=== PATIENT | female | born 1945 | race Caucasian/White ===

== ENCOUNTER 2019-03-18 01:02 | Inpatient (IN) | payer MEDICARE, BC ==
[2019-03-18] VITALS (9 sets, daily range): BP systolic 121–143; BP diastolic 67–93
[~2019-03-18] VITALS: Ht 177.8 cm; Wt 126.4 kg
[~2019-03-18 01:02] MED LIST: CELE-1 PO; CEPH500T7 PO; ESOM40CA42 PO; FESO8PT PO; FLUT16SP19 NS; HYDR-2966 PO; LEVO50TA80 PO; LISI-374 PO; MIRA50TA PO; MONT10TA PO; PITA4TAB PO; PREG150C33 PO; TRAM-420 PO
[2019-03-18] MEDS ORDERED: FAMOTIDINE 20 MG TAB PO ONE (06:00)
[2019-03-18] MEDS ORDERED: ACETAMINOPHEN 500 MG TAB PO ONE (06:00)
[2019-03-18] MEDS ORDERED: NORMOSOL R SOLN(*) 1000 ML BAG 1,000 ML IV PRN (06:00)
[2019-03-18] MEDS ORDERED: BACITRACIN 50000 UNIT/VIAL 50,000 UNIT in NS 0.9% IRRIG(*) 1000ML PLCT 1,000 ML IR PRN (06:00)
[2019-03-18] MEDS ORDERED: ceFAZolin(*) 1 GM VIAL 3 GM in NS(*) 0.9% 100 ML BAG 100 ML IVPB ONE (06:00)
[2019-03-18] MEDS ORDERED: MIDAZOLAM 2 MG/2 ML VIAL IVP PRN (06:00)
[2019-03-18] MEDS ORDERED: LIDOCAINE/SOD BICARB 8.4% SYR ID ONE (06:00)
[2019-03-18] MEDS ORDERED: THROMBIN (BOVINE) 20,000 UNIT VIAL ONE (08:23)
[2019-03-18] MEDS ORDERED: REMIFENTANIL HCL 1 MG VIAL ONE (11:12)
[2019-03-18] MEDS ORDERED: NS 0.9% IRRIGATION 1000ML PLCT IR ONE (12:24)
[2019-03-18] MEDS ORDERED: TRANEXAMIC AC 1000 MG/10ML SDV 1,000 MG in DEXTROSE 5% 50 ML BAG 50 ML IV ONE (12:30)
[2019-03-18] MEDS ORDERED: DEXAMETHASONE SOD PHOS 10MG/ML ONE (13:24)
[2019-03-18] MEDS ORDERED: SUCCINYLCHOL CHL 100MG/5ML SYR IVP ONE (13:24)
[2019-03-18] MEDS ORDERED: ONDANSETRON 4 MG/2 ML VIAL ONE (13:24)
[2019-03-18] MEDS ORDERED: PROPOFOL EMUL(*) 10MG/ML 20 ML 20 ML ONE (13:24)
[2019-03-18] MEDS ORDERED: ROCURONIUM BR 10 MG/ML 5 ML SY 5 ML ONE (13:24)
[2019-03-18] MEDS ORDERED: HYDROmorphone HCL 2 MG/ML SDV ONE (14:31)
--- NOTE | 2019-03-18 15:22 | RADIOLOGY IMAGING REPORT ---
FACILITY: [facility] PATIENT NAME: Marianela Mckeon : 1945 MR: [id number] V: [id number] EXAM DATE: ORDERING PHYSICIAN: KAELYN JAQUEZ TECHNOLOGIST: Location: [facility] Patient: Marianela Mckeon : 1945 Visit/Account:[id number] Date of Sevice: 03/18/2019 Intraoperative fluoroscopy. BODY PART: Lumbar spine. NUMBER OF IMAGES: Five. HISTORY: Lumbar surgery. Images were obtained during intraoperative fluoroscopy. FLUOROSCOPY TIME: 35.8 seconds. IMPRESSION: Intraoperative fluoroscopy. Report Dictated By: Kristian Lenz MD at 03/18/2019 3:12 PM Report E-Signed By: Kristian Lenz MD at 03/18/2019 3:13 PM WSN:[email or web address]
[2019-03-18] MEDS ORDERED: LR(*) 1000 ML BAG 1,000 ML IV PRN (16:15)
[2019-03-18] MEDS ORDERED: BENZOCAINE/MENTHOL 1 EACH LOZG PO PRN (16:15)
[2019-03-18] MEDS ORDERED: FLUSH 10 ML SYR IVP PRN (16:15)
[2019-03-18] MEDS ORDERED: BISACODYL 10 MG SUPP PR PRN (16:15)
[2019-03-18] MEDS ORDERED: ACETAMINOPHEN 500 MG TAB PO PRN (16:15)
[2019-03-18] MEDS ORDERED: ACETAMINOPHEN(*)1000 MG/100 ML 100 ML IVPB PRN (16:15)
[2019-03-18] MEDS ORDERED: HYDROmorphone HCL 2 MG/ML SDV IVP PRN (16:15)
[2019-03-18] MEDS ORDERED: MAGNESIUM HYDROXIDE* 30ML UDCP PO PRN (16:15)
[2019-03-18] MEDS ORDERED: oxyCODONE HCL 5 MG CAP PO PRN (16:15)
[2019-03-18] MEDS ORDERED: ONDANSETRON 4 MG/2 ML VIAL IVP PRN (16:15)
[2019-03-18] MEDS ORDERED: diphenhydrAMINE 25 MG CAP PO PRN (16:15)
[2019-03-18] MEDS ORDERED: fentaNYL CITR 100 MCG/2 ML AMP ONE (16:34)
--- NOTE | 2019-03-18 17:16 | Hospitalist Consultation ---
History of Present Illness Requesting Physician Dr. Henriquez Reason for Consult Medical Management of Comorbidities Chief Complaint s/p lumbar fusion History of Present Illness She was admitted s/p lumbar fusion. It is reported the surgery went well and without complication. History Problems: (1) Hyperlipidemia Status: Chronic (2) Hypertension Status: Chronic (3) Hypothyroidism Status: Chronic (4) YEISON (obstructive sleep apnea) Status: Chronic (5) Overactive bladder Status: Chronic (6) UTI (urinary tract infection) Status: Acute Home Meds Reported Medications Cephalexin 500 Mg Tab (KEFLEX 500 MG TAB) 500 Mg Tablet, 500 MG PO DAILY, #28 TAB TAKE FOR 3 DAYS PRIOR TO SURGERY SCHEDULED FOR 03/18/19 03/12/19 Tramadol Hcl (TRAMADOL HCL) 50 Mg Tablet, 50-100 MG PO Q4-6H PRN for PAIN, TAB 03/12/19 Pitavastatin Calcium (LIVALO) 4 Mg Tablet, 4 MG PO QAM 03/12/19 Mirabegron (MYRBETRIQ) 50 Mg Tab.er.24h, 50 MG PO QHS 03/12/19 Hydrochlorothiazide (HYDROCHLOROTHIAZIDE) 25 Mg Tablet, 1 TAB PO QDAY, TAB 03/12/19 Fluticasone Prop 50 Mcg Ns (FLONASE 50 MCG NS) 16 Gm [place].susp, 2 SPRAYS NS QDA Y, BOT 03/12/19 Lisinopril (LISINOPRIL) 40 Mg Tablet, 40 MG PO QDAY, TAB 03/12/19 Levothyroxine Sodium (SYNTHROID) 50 Mcg Tablet, 50 MCG PO QDAY, TAB 03/12/19 Fesoterodine Fumarate (TOVIAZ) 8 Mg Tabsr, 8 MG PO QAM 03/12/19 Pregabalin (LYRICA) 150 Mg Capsule, 150 MG PO BID, CAPSULE 03/12/19 Esomeprazole Magnesium (NEXIUM) 40 Mg Capsule.dr, 1 CAP PO QHS, CAP 03/12/19 Montelukast Sodium (SINGULAIR) 10 Mg Tablet, 1 TAB PO QHS, TAB 03/12/19 Celecoxib (CELEBREX) 200 Mg Capsule, 200 MG PO BID, CAPSULE 03/12/19 Allergies: Coded Allergies: codeine (Verified Allergy, Intermediate, HALLUCINATION, 03/10/19) meperidine (Verified Allergy, Intermediate, HALLUCINTATIONS, 03/10/19) Patient History: FH: COPD (chronic obstructive pulmonary disease) FATHER, FH: abdominal aortic aneurysm MOTHER, FH: asthma FATHER, FH: rheumatoid arthritis FATHER, Osteoarthritis MOTHER, Hx Smoking: No Smoking Status: Never Smoker Caffeine Intake: Coffee Caffeine/Cups Per Day: 18 OZ DAILY Hx Alcohol Use: No Hx Substance Use Disorder: No Social Drug Use: Never History of IV Drug Use: No Review of Systems All Systems Reviewed/Normal: Yes, Except as Noted Exam Vital Signs Vital Signs Date Time Temp Pulse Resp B/P (MAP) Pulse Ox O2 Delivery O2 Flow Rate FiO2 03/18/19 17:15 67 20 98 03/18/19 09:20 Room Air 03/18/19 09:18 97.6 121/78 (92) General Appearance: Alert, Awake, No Acute Distress, Afebrile Neuro: No Gross deficits Cardiovascular: Regular Rate and Rhythm Respiratory: No Respiratory Distress, Clear to Auscultation Psych: Alert & Oriented X3, Appropriate Mood & Affect Assessment and Plan Problems: (1) S/P lumbar fusion Status: Acute Assessment & Plan: Followed by Dr. Henriquez. (2) Hypertension Status: Chronic Assessment & Plan: She is on chronic treatment with Lisinopril and Hydr ochlorothiazide. The Lisinopril has been restarted with hold parameters. (3) Hypothyroidism Status: Chronic Assessment & Plan: Continue chronic Levothyroxine. (4) Hyperlipidemia Status: Chronic Assessment & Plan: She is on chronic treatment with Livalo. Medication is not available on formulary. Patient would like to hold medication during inpatient stay. (5) UTI (urinary tract infection) Status: Acute Assessment & Plan: Continue Keflex after Ancef complete. (6) Overactive bladder Status: Chronic Assessment & Plan: Will hold Myrbetriq and Toviaz at this time. (7) YEISON (obstructive sleep apnea) Status: Chronic Assessment & Plan: Continue chronic CPAP. Venous Thromboembolism Antithrombotics Is Pt On Any Antithrombotics?: No Problem Qualifiers (1) Hypertension: Hypertension type: essential hypertension Qualified Codes: I10 - Essential (primary) hypertension MARITA ANAYA INDUSTRIAL ROOFER Mar 18, 2019 17:16
[2019-03-18] MEDS: ceFAZolin 3 GM in NS 0.9% 100 ML BAG IVPB SCH (18:54)
[2019-03-18] MEDS: APAP/HYDROCODONE 325/5 TAB PO PRN (19:51)
[2019-03-18] MEDS: PANTOPRAZOLE SOD 40 MG TABEC PO SCH (20:47)
[2019-03-18] MEDS: DOCUSATE SODIUM 100 MG CAP PO SCH (20:47)
[2019-03-18] MEDS: MONTELUKAST SODIUM 10 MG TAB PO SCH (20:47)
[2019-03-18] MEDS: DIAZEPAM 5 MG TAB PO PRN (20:47)
[2019-03-18] MEDS: PREGABALIN 150 MG CAPSULE PO SCH (20:48)
[2019-03-19] VITALS (10 sets, daily range): BP systolic 112–162; BP diastolic 61–90; Ht 177.8 cm; Wt 126.4 kg
[2019-03-19] MEDS: ceFAZolin 3 GM in NS 0.9% 100 ML BAG IVPB SCH ×2 (03:03→12:52)
[2019-03-19] MEDS: DIAZEPAM 5 MG TAB PO PRN ×3 (03:09→18:02)
[2019-03-19] MEDS: APAP/HYDROCODONE 325/5 TAB PO PRN ×3 (06:13→21:16)
--- NOTE | 2019-03-19 08:46 | NUR ---
Physical Therapy Impression PT eval complete, pt agreeable to therapy session. Verbal cues for log roll technique.SBA for transfers and ambulation x150' with RW with cues for upright posture.SpO2 initially WNL on room air, but dropped to 80% at end of session. Pt reporting increased pain at end of session, RN notified. Physical Therapy Goals 1: pt to complete bed mobility with log roll technique with SBA 2: Pt to complete transfers with appropriate AD and SBA 3: Pt to ambulate 150' with appropriate AD and SBA 4: Pt to asc/desc 2 stairs with SBA Patient's Goals
--- NOTE | 2019-03-19 08:49 | OPERATIVE REPORT 1 ---
EVENT DATE: March 18, 2019 SURGEON: Kb Henriquez MD ANESTHESIOLOGIST: Abhishek West MD ANESTHESIA: General endotracheal anesthesia. STEEL RULE INSPECTOR: ENMANUEL Garcia PREOPERATIVE DIAGNOSIS Neurogenic claudication with L4, L5 spinal stenosis and an L4, L5 degenerative spondylolisthesis causing spinal stenosis. POSTOPERATIVE DIAGNOSIS Neurogenic claudication with L4, L5 spinal stenosis and an L4, L5 degenerative spondylolisthesis causing spinal stenosis. PROCEDURE PERFORMED L4, L5 laminectomy with transforaminal lumbar interbody fusion and with posterolateral instrumented fusion with pedicle screw construct. IV FLUIDS 2900 cc. ESTIMATED BLOOD LOSS 300 cc. IMPLANTS USED 1. An 11 mm tall x 34 mm long titanium interbody device from [employer]. 2. 6.5 mm x 40 mm pedicle screws from [employer] x4. 3. 5.5 mm x 40 mm connecting rods from [employer] x2. 4. Locking caps from [employer] x4. 5. 5 cc ViBone bone graft substitute. SPECIMENS None. DRAINS 10 mm flat Fernie-Gomez drain. COMPLICATIONS None. DISPOSITION Post-anesthesia care unit. INDICATIONS FOR SURGERY Ms. Mckeon is a 73-year-old who presented with a compliant of radiating pain, numbness and tingling down bilateral buttocks, thighs, and into the legs. She had weakness and heaviness in her legs with any attempts a prolonged walking requiring to lean forward on a cart or use an electric cart. Physical Therapy, Medrol dose packs, Lyrica and nonsteroidals gave her only temporary relief. She had no bowel or bladder dysfunction or constitutional symptoms. Her physical examination revealed thoracolumbar range of motion of 90 degrees, flexion 20 degrees, extension 20 degrees lateral bending. She had a negative straight-leg raising test bilaterally and muscle strength was 5/5 in all lower extremity muscle groups on manual muscle testing. Her sensation was intact throughout. Diagnostic studies showed nearly a grade II anterolisthesis of L4 on L5 which almost completely reduces in the MRI. She had moderate bilateral lateral recess stenosis at L4, L5 secondary to broad-based disc bulging, uncovering of the disc, facet hypertrophy and ligamentum flavum thickening. There was also left greater than right foraminal narrowing. Secondary to the significant spinal stenosis that she had and her ongoing neurogenic claudication symptoms, plus the dynamic instability at L4, L5, Ms. Baez was offer and elected to undergo L4, L5 transforaminal lumbar interbody fusion with an open laminectomy and with posterolateral fixation with a pedicle screw construct. Posterolateral fusion was performed as well. Prior to surgery, I explained in detail to the patient the risks of surgery. These risks include bleeding, infection, damage to surrounding structures, nerve root injuries, spinal fluid leak, meningitis, , blindness, sexual dysfunction, autonomic nervous system dysfunction and other unforeseen medical and surgical complications. An understanding that in general spinal surgery is more predictive at improving extremity discomfort than axial spine pain was stressed. Further discussion regarding her morbid obesity and the significant increase in risks, particularly infection, bleeding, etc. DESCRIPTION OF PROCEDURE On the day of surgery the patient was met in the preoperative hold area and all questions were answered. The operative site was identified and marked by myself. The patient was brought in good condition to the operating room and after succumbing to anesthesia was positioned in the prone position on a Fernie table. All bony protuberances and soft tissues were well padded in the standard fashion. Care was taken to maintain appropriate perfusion pressures during anesthesia. Preoperative antibiotics were administered according to the appropriate timing schedule. At the conclusion of the procedure, sponge and needle counts were correct x2. A final timeout was undertaken by members of the operating team to confirm correct patient, correct levels, and correct surgery. The patient was then prepped and draped in the standard sterile orthopedic fashion and a vertical incision was made overlying the intended surgical levels. Dissection was carried out down through the skin, subcutaneous layers and fat until we reached the spine. Deep retractors were placed and the spinal musculature was elevated off the posterior elements in a subperiosteal manner. A lateral radiograph was obtained to confirm appropriate spinal level and we then used electrocautery to clear off the starting points for pedicle screws at L4 and L5 bilaterally. This point was at approximately the junction of the pars interarticularis, the mid- point of the transverse process and the lateral aspect of the respective facet joint. Once we had accomplished this and cleared soft tissue off all the way out to the tips of the transverse processes, we packed the lateral gutters with thrombin-soaked cigars. Attention was then turned to the laminectomy. A Leksell rongeur was used to remove the lamina of L4. We also removed a little bit of the inferior aspect of the L3 lamina and a bit of the top of the L5 lamina. The lamina was thinned down the midline and I then used a Spencer curette to undermine the superior insertion of the ligamentum flavum from the inferior aspect of the L4 lamina. A Crowley elevator was used to separate dural adhesions from surrounding bone and soft tissue prior to use of the Kerrison punch. #3 and #4 Kerrison rongeurs were then used to perform a midline decompression until we reached the interspace between L3 and L4. I then performed bilateral lateral recess decompressions again clearing the dural adhesions from surrounding bone and soft tissue with a Crowley elevator and then using the Kerrison punch to perform the lateral recess decompression. Once this was completed, I turned my attention to the right side of the spine secondary to her right leg being more painful for her and on that side, I used an osteotome to perform a complete facetectomy taking care not to osteotomize the pedicles. Once this was accomplished, I was able to put screws in the L4 and L5 pedicles and use a distracting device to distract against the pedicle screws. Once I had done this, I was ultimately able to expose the disc space and I performed an annulotomy. A combination of doron, curettes, Bella, and pituitary rongeurs were then used to perform a discectomy insuring that I stripped the cartilaginous remnant off the endplates and achieved good bleeding bone across both surfaces. I then went through a series of trial implants and ultimately selected an 11 mm implant, [address] to place in the interbody space. We then packed the selected titanium interbody device with [employer] and under fluoroscopic guidance tapped it into the interbody space and seated it as far forward as possible, placing it at an oblique angle so that it crossed the midline as well. Once this was completed, we then moved to the left side and placed pedicle screws at L4 and L5 there, again by first decorticating the overlying bone at the entry point as previously described and then advancing against resistance through the pedicle using a Lenke type probe. Once this was accomplished, ball-tip feeler was placed through the pedicles feeling the superior, inferior, medial and lateral bauer of the pedicles for any possible breaches as well as the floor for the possibility of bony breaching there. Pedicle screws were placed on the left side and tested with neurophysiologic monitoring which was all well within acceptable limits. We then selected 40 mm connecting rods and placed those in the tulips and performed a reduction maneuver, achieving an excellent reduction of her L4 on L5 spondylolisthesis. The final statistical clerk was used to snap off the tops of the locking caps and we then removed the extended tabs on the screws and obtained final radiographs that showed a perfect reduction, excellent positioning of the interbody device and appropriate placement of the pedicle screws. The wound was then irrigated with copious sterile saline solution. Posterolateral bone was laid in the lateral gutters and the wound was closed in layers using a running Stratafix suture for the deep fascia, inverted interrupted sutures for the subcutaneous tissue and then a running subcuticular skin stitch. Sponge and needle counts were correct x2. A drain was left deep to the fascia. POSTOPERATIVE CARE PLAN The patient will remain in the hospital until she passes PT and is ready for discharge. She will be discharged home with instructions to follow up with me in 2 weeks' time for wound check and examination. PASCALE
[2019-03-19] MEDS ORDERED: PITAVASTATIN CALCIUM 4 MG TAB PO SCH (09:00)
[2019-03-19] MEDS: LISINOPRIL 20 MG TAB PO SCH (09:00)
[2019-03-19] MEDS ORDERED: FESOTERODINE FUMARATE 8 MG PO SCH (09:30)
[2019-03-19] MEDS: PREGABALIN 150 MG CAPSULE PO SCH ×2 (09:31→21:07)
[2019-03-19] MEDS: DOCUSATE SODIUM 100 MG CAP PO SCH ×2 (09:31→21:05)
[2019-03-19] MEDS: LEVOTHYROXINE SOD 0.05 MG TAB PO SCH (09:50)
[2019-03-19] MEDS: FLUTICASONE PROP 0.05% 16 GM SCH (09:50)
--- NOTE | 2019-03-19 10:17 | Hospitalist Progress Note ---
Subjective Progress Notes Subjective She was admitted s/p lumbar surgery. She requests to have her overactive bladder medications restarted. Otherwise, denies any complaints. Patient Complains of: Cardiovascular: No: Chest Pain Respiratory: No: Shortness of Breath Physical Exam Vital Signs Date Time Temp Pulse Resp B/P (MAP) Pulse Ox O2 Delivery O2 Flow Rate FiO2 03/19/19 07:24 98.8 71 16 112/74 (87) 94 Nasal Cannula 3.0 Intake and Output 03/19/19 01:03 Intake Total 2215 ml Output Total 220 ml Balance 1995 ml Intake Oral 600 ml IV Total 1415 ml Other 200 ml Output Drainage Total 50 ml Estimated Blood Loss 100 ml Other 70 ml # Voids 2 General Appearance: Alert, Awake, No Acute Distress, Afebrile Neuro: No Gross deficits Cardiovascular: Regular Rate and Rhythm Respiratory: No Respiratory Distress, Clear to Auscultation Psych: Alert & Oriented X3, Appropriate Mood & Affect Assessment and Plan Problems: (1) S/P lumbar fusion Status: Acute Assessment & Plan: Followed by Dr. Henriquez. (2) Hypertension Status: Chronic Assessment & Plan: She is on chronic treatment with Lisinopril and Hydrochlorothiazide. The Lisinopril has been restarted with hold parameters. (3) Hypothyroidism Status: Chronic Assessment & Plan: Continue chronic Levothyroxine. (4) Hyperlipidemia Status: Chronic Assessment & Plan: She is on chronic treatment with Livalo. Medication is not available on formulary. Patient would like to hold medication during inpatient s justin. (5) UTI (urinary tract infection) Status: Acute Assessment & Plan: Continue Keflex after Ancef complete. (6) Overactive bladder Status: Chronic Assessment & Plan: Will resume Myrbetriq and Toviaz at this time. (7) YEISON (obstructive sleep apnea) Status: Chronic Assessment & Plan: Continue chronic CPAP. Exam Sepsis Risk: No Definite Risk Problem Qualifiers (1) Hypertension: Hypertension type: essential hypertension Qualified Codes: I10 - Essential (primary) hypertension MARITA ANAYA Mar 19, 2019 10:17
--- NOTE | 2019-03-19 12:07 | RADIOLOGY IMAGING REPORT ---
FACILITY: [facility] PATIENT NAME: Marianela Mckeon : 1945 MR: [id number] V: [id number] EXAM DATE: ORDERING PHYSICIAN: KAELYN JAQUEZ TECHNOLOGIST: Location: [facility] - [place], [place] Patient: Marianela Mckeon : 1945 Visit/Account:[id number] Date of Sevice: 03/19/2019 Study: Lumbar spine series Indication: Status post fusion Comparison study: None Findings: AP lateral and coned-down lateral views of the lumbar spine demonstrates that the patient i s status post L4-5 fusion. There is a grade I anterolisthesis at the fused level. There is mild degenerative disease of the lumbar vertebrae. There is a grade I retrolisthesis at the L1-2 level. There is no evidence of lytic or blastic bony lesions. IMPRESSION: Status post fusion. Report Dictated By: Octavio Eaton at 03/19/2019 11:50 AM Report E-Signed By: Octavio Eaton at 03/19/2019 11:59 AM WSN:[email or web address]
--- NOTE | 2019-03-19 12:54 | NUR ---
1100 Ancef dose missed due to floor conditions- Clair in pharmacy states give last dose at this time and instructed on how to document late administration correctly
[2019-03-19] MEDS ORDERED: MIRABEGRON 25 MG ER TAB PO SCH (21:00)
[2019-03-19] MEDS: PANTOPRAZOLE SOD 40 MG TABEC PO SCH (21:05)
[2019-03-19] MEDS: MONTELUKAST SODIUM 10 MG TAB PO SCH (21:05)
[2019-03-19] MEDS: CEPHALEXIN MONO 500 MG CAP PO SCH (21:06)
[2019-03-20 03:16] VITALS: BP 126/67
[2019-03-20] MEDS: APAP/HYDROCODONE 325/5 TAB PO PRN ×2 (05:46→11:24)
[2019-03-20] MEDS: LEVOTHYROXINE SOD 0.05 MG TAB PO SCH (05:46)
[2019-03-20 06:44] VITALS: BP 116/67
[2019-03-20] MEDS ORDERED: LOR5/325 PO (08:16)
[2019-03-20] MEDS ORDERED: DOCU240C84 PO (08:17)
[2019-03-20] MEDS ORDERED: DIA5 PO (08:17)
[2019-03-20] MEDS: FLUTICASONE PROP 0.05% 16 GM SCH (08:55)
[2019-03-20] MEDS: DOCUSATE SODIUM 100 MG CAP PO SCH (08:56)
[2019-03-20] MEDS: LISINOPRIL 20 MG TAB PO SCH (08:56)
[2019-03-20] MEDS: PREGABALIN 150 MG CAPSULE PO SCH (08:56)
[2019-03-20] MEDS: CEPHALEXIN MONO 500 MG CAP PO SCH (09:00)
--- NOTE | 2019-03-20 09:16 | NUR ---
Physical Therapy Impression Patient was min A for LE's into and out of bed and will have assistance at home. Patient was I with log rolling and did adhere to spinal precautions and was able to verbalize all spinal precautions. Patient was I with transfers. Patient instructed in gait training with FWW ~150 feet with cuing for posture and to relax her arms. Patient's walker was adjusted upon return to room as it was a new walker. Patient ascended and descended 6 stairs with step to gait and CGA. Patient demonstrated good safety awareness with stairs. Patient was left in bed with rails up and oxygen on. Nursing was notified that she is ready to be discharged. Physical Therapy Goals 1: pt to complete bed mobility with log roll technique with SBA 2: Pt to complete transfers with appropriate AD and SBA 3: Pt to ambulate 150' with appropriate AD and SBA 4: Pt to asc/desc 2 stairs with SBA Patient's Goals
--- NOTE | 2019-03-20 10:40 | Hospitalist Progress Note ---
Subjective Progress Notes Subjective No acute events overnight. Pain is well controlled. Patient Complains of: Neurological: No: Confusion, Weakness Cardiovascular: No: Chest Pain, Palpitations Respiratory: No: Congestion, Shortness of Breath Physical Exam Vital Signs Date Time Temp Pulse Resp B/P (MAP) Pulse Ox O2 Delivery O2 Flow Rate FiO2 03/20/19 07:48 96 Nasal Cannula 2.0 03/20/19 06:44 98.0 55 16 116/67 (83) Intake and Output 03/20/19 01:03 Intake Total 750 ml Output Total 850 ml Balance -100 ml Intake Oral 750 ml Output Drainage Total 850 ml # Voids 9 General Appearance: Alert, Awake, No Acute Distress Cardiovascular: Regular Rate and Rhythm Respiratory: No Respiratory Distress Assessment and Plan Problems: (1) S/P lumbar fusion Status: Acute Assessment & Plan: Followed by Dr. Henriquez. Pain is well controlled and she is working with PT. (2) Hypertension Status: Chronic Assessment & Plan: She is on chronic treatment with Lisinopril and Hydrochl orothiazide. (3) Hypothyroidism Status: Chronic Assessment & Plan: Continue chronic Levothyroxine. (4) Hyperlipidemia Status: Chronic Assessment & Plan: She is on chronic treatment with Livalo, and will resume upon discharge home. (5) UTI (urinary tract infection) Status: Acute Assessment & Plan: She was placed on 3 days of Keflex pre-op for UTI prophylaxis. She has no complaints for UTI symptoms. She received 3 days worth of Keflex pre-op and 3 doses of IV Ancef post-op. Keflex stopped at this time. (6) Overactive bladder Status: Chronic Assessment & Plan: Remains on Myrbetriq and Toviaz. (7) YEISON (obstructive sleep apnea) Status: Chronic Assessment & Plan: Continue chronic CPAP. Copies to: KAELYN HENRIQUEZ MD ; Exam Sepsis Risk: No Definite Risk Problem Qualifiers (1) Hypertension: Hypertension type: essential hypertension Qualified Codes: I10 - Essential (primary) hypertension AGA CHRISTIANSON Mar 20, 2019 10:40
== END 2019-03-20 11:40 | disposition home or self-care (01) | DRG 460 ==
LOC: OR 01:02 → MED 17:40
PROVIDERS: ADMIT Orthopaedic Surgery; ATTEND Orthopaedic Surgery
PROC: 0SG00AJ Fusion of Lumbar Vertebral Joint with Interbody Fusion Device, Posterior Approach, Anterior Column, Open Approach (ICD-10-PCS; principal; 2019-03-18)
PROC: 01NB0ZZ Release Lumbar Nerve, Open Approach (ICD-10-PCS; 2019-03-18)
PROC: 0ST20ZZ Resection of Lumbar Vertebral Disc, Open Approach (ICD-10-PCS; 2019-03-18)
DX: M48.062 Spinal stenosis, lumbar region with neurogenic claudication (principal); N39.0 Urinary tract infection, site not specified; M43.16 Spondylolisthesis, lumbar region; I10 Essential (primary) hypertension; K21.9 Gastro-esophageal reflux disease without esophagitis; G47.33 Obstructive sleep apnea (adult) (pediatric); J45.909 Unspecified asthma, uncomplicated; E03.9 Hypothyroidism, unspecified; N32.81 Overactive bladder; Z99.81 Dependence on supplemental oxygen
CPT/HCPCS: 36415; 72100; 76000; 86850; 86900; 86901; 94667; 97161; J0330; J0690; J1100; J1170; J2250; J2405; J2704; J3010; J7050; J7060